=== PATIENT | female | born 1945 | race Caucasian/White ===

== ENCOUNTER 2020-05-05 17:03 | Emergency (ER) | payer MEDICARE, OTHER ==
[2020-05-05] MEDS ORDERED: Acetaminophen/Codeine 30-300mg Tablet ONE (17:29)
--- NOTE | 2020-05-05 17:57 | RAD ---
LEFT WRIST 3 VIEWS: Date: 05/05/2020 An impacted fracture of the distal radius is present with dorsal angulation of the distal fragment. T he ulnar styloid appears intact. The carpal bones appear intact. Arthritic changes are seen in the fi rst carpometacarpal joint and there could have been old trauma here in the past. IMPRESSION: Angulated fracture of the distal radius. POS: HOME
[2020-05-05] MEDS ORDERED: Morphine 4 MG/ML VIAL ONE (18:31)
[2020-05-05] MEDS ORDERED: Bacitracin 1 PK ONE (18:33)
== END 2020-05-05 19:00 | disposition home or self-care (01) ==
LOC: BURERS 17:03
DX: S52.502A Unspecified fracture of the lower end of left radius, initial encounter for closed fracture (principal); W19.XXXA Unspecified fall, initial encounter
CPT/HCPCS: 25605; 96372; J2270